=== PATIENT | female | born 1990 | race Two or more races ===

== ENCOUNTER → 2018-07-02 | Outpatient (CLI) | payer OTHER | LOC: BRMIMAGING 09:27 | PROVIDERS: ATTEND Physician Assistant | DX: M79.674 Pain in right toe(s) (principal) | CPT/HCPCS: 73630-PO ==

== ENCOUNTER → 2018-07-15 | Outpatient (CLI) | payer OTHER | LOC: BRMIMAGING 10:18 | PROVIDERS: ATTEND Physician Assistant | DX: M79.671 Pain in right foot (principal) | CPT/HCPCS: 73630-PO ==